=== PATIENT | female | born 1965 | race African-American/Black ===

== ENCOUNTER 2019-11-01 10:34 | Emergency (ER) | payer BC ==
[2019-11-01 10:46] VITALS: BP 158/87
--- NOTE | 2019-11-01 11:21 | UC ---
Back Pain HPI - HPI Summary HPI Summary: 54-year-old female presents with complaints of sudden onset of left mid back pain when she attempted to bend over to remove some items from her refrigerator last night. Describes pain as sharp and shooting. Worsens with movement, bending, or twisting. Used a heating pad last night with some relief in the symptoms and took acetaminophen this morning but does not feel that this has improved the pain much. Denies fever, chills, rash, chest pain, palpitations, diaphoresis, shortness of breath, abdominal pain, nausea, vomiting, dysuria, frequency, urgency, hematuria, numbness, tingling, weakness of the extremities, or loss of bowel or bladder control. - History of Current Complaint Chief Complaint: UCBackPain Stated Complaint: BACK PAIN Time Seen by Provider: 11/01/19 10:51 Hx Obtained From: Patient Hx Last Menstrual Period: 2 WEEKS AGO Pain Intensity: 9 - Allergies/Home Medications Allergies/Adverse Reactions: Allergies Allergy/AdvReac Type Severity Reaction Status Date / Time metronidazole [From Flagyl] Allergy Rash Verified 11/01/19 10:42 pyrimethamine [From Fansidar] Allergy Hives Verified 11/01/19 10:42 Sulfa (Sulfonamide Allergy ink Verified 11/01/19 10:42 Antibiotics) sulfadoxine [From Fansidar] Allergy Hives Verified 11/01/19 10:42 PMH/Surg Hx/FS Hx/Imm Hx Previously Healthy: Yes - Denies signigicant PMH - Surgical History Surgical History: Yes Surgery Procedure, Year, and Place: C-SECTIONS - Family History Known Family History: Positive: Non-Contributory - Social History Occupation: Employed Full-time Lives: With Family Alcohol Use: None Substance Use Type: None Smoking Status (MU): Never Smoked Tobacco - Immunization History Most Recent Tetanus Shot: Unknown Review of Systems All Other Systems Reviewed And Are Negative: Yes Constitutional: Negative: Fever, Chills Skin: Negative: Rash Respiratory: Negative: Shortness Of Breath, Cough Cardiovascular: Negative: Palpitations, Chest Pain Gastrointestinal: Negative: Abdominal Pain, Vomiting, Nausea Genitourinary: Negative: Dysuria, Hematuria, Frequency, Urgency Motor: Negative: Weakness Neurovascular: Negative: Decreased Sensation Musculoskeletal: Positive: Other: - See HPI Neurological: Positive: Negative Is Patient Immunocompromised?: No Physical Exam - Summary Physical Exam Summary: GENERAL APPEARANCE: Alert and cooperative obese adult female who appears to be uncomfortable unable to find a position of comfort. CARDIAC: Normal S1 and S2. No S3, S4 or murmurs. Rhythm is regular. There is no peripheral edema, cyanosis or pallor. Extremities are warm and well perfused. Capillary refill is less than 2 seconds. Peripheral pulses intact. LUNGS: Clear to auscultation without rales, rhonchi, wheezing or diminished breath sounds. ABDOMEN: Positive bowel sounds. Soft, nondistended, nontender. No guarding or rebound. No masses or hepatosplenomegally. MUSKULOSKELETAL: ROM intact to all extremities. No joint erythema or tenderness. Normal muscular development. Normal gait. BACK: No spinal deformity or midline tenderness. Mild soft tissue paraspinous tenderness to the left thoracic back. No muscle spasm noted. NEUROLOGICAL: Strength and sensation symmetric and intact throughout. SKIN: Skin normal color, texture and turgor with no lesions or eruptions. Triage Information Reviewed: Yes Vital Signs: Initial Vital Signs Temp 98 F 11/01/19 10:44 Pulse 83 11/01/19 10:44 Resp 18 11/01/19 10:44 BP 158/87 11/01/19 10:44 Pulse Ox 100 11/01/19 10:44 Vital Signs Reviewed: Yes Back Pain Course/Dx - Course Course Of Treatment: 54-year-old female presents with complaints of sudden onset of left mid back pain when she attempted to bend over to remove some items from her refrigerator last night. Describes pain as sharp and shooting. Worsens with movement, bending, or twisting. Used a heating pad last night with some relief in the symptoms and took acetaminophen this morning but does not feel that this has improved the pain much. Denies fever, chills, rash, chest pain, palpitations, diaphoresis, shortness of breath, abdominal pain, nausea, vomiting, dysuria, frequency, urgency, hematuria, numbness, tingling, weakness of the extremities, or loss of bowel or bladder control. Afebrile. Hypertensive otherwise vital signs stable. On exam patient appeared to be uncomfortable having difficulty finding a position of comfort. She had some left thoracic back soft tissue tenderness without spasm, no midline tenderness or deformities, no evidence of rash or lesions, gait was normal, and strength and sensation were intact. Discussed with the patient that her history and physical were consistent with a acute back strain and recommending conservative treatment at this time. She was given a dose of ibuprofen 600 mg PO in the clinic for pain and I provided her with a prescription for naproxen 500 mg 1 tablet every 12 hours to be taken regularly for the next 3 days then as needed. I also provided her with a prescription for cyclobenzaprine 10 mg 1 tablet every 8 hours as needed for severe pain or spasm and have recommended heat therapy. She is to return here or follow up with her primary care provider in 3 days if symptoms are not improving. Anticipatory guidance and warning symptoms requiring immediate evaluation in the emergency room were reviewed with the patient. Verbalizes understanding and agrees with plan of care. - Differential Dx/Diagnosis Differential Diagnosis/HQI/PQRI: Herniated Disc, Renal Colic, Strain Provider Diagnosis: Acute back pain Discharge ED - Sign-Out/Discharge Documenting (check all that apply): Patient Departure All imaging exams completed and their final reports reviewed: No Studies - Discharge Plan Condition: Stable Disposition: HOME Prescriptions: Cyclobenzaprine HCl 10 mg PO Q8HR PRN #21 tablet PRN Reason: Spasms - Back Naproxen [Naproxen 500 mg tab] 500 mg PO Q12HR #30 tablet Patient Education Materials: Back Pain (ED) Forms: *Work Release Referrals: Leroy Romero MD [Primary Care Provider] - 3 Days Additional Instructions: Your history and exam are consistent with an acute back strain. You're given a dose of ibuprofen 600 mg in the clinic at approximately 11:30 AM for the pain. Do not take any other anti-inflammatory medication such as aspirin, ibuprofen, naproxen for at least 8 hours. Start naproxen 500 mg 1 tablet every 12 hours with food for the next 3-5 days that you may take it every 12 hours as needed for pain. Take cyclobenzaprine 10 mg 1 tablet every 8 hours as needed for severe pain or spasm. This medication will cause drowsiness and to not take and drive or operate machinery. Apply a heating pad to the affected area for 15-20 minutes at least 4 times a day to help relax the muscles at least the pain. Return here or follow-up with your primary care provider in 3 days if symptoms are not improving. Seek immediate medical attention in the emergency room if you develop a fever greater than 100.5 F, have chest pain, shortness of breath, develop persistent or projectile vomiting, severe abdominal pain, you have difficulty walking, develop weakness, numbness, or tingling in your lower extremities, lose control of her bowel or bladder, or have any worsening of symptoms. - Billing Disposition and Condition Condition: STABLE Disposition: Home
[2019-11-01] MEDS ORDERED: Ibuprofen TAB* 600 MG PO ONE (11:30)
== END 2019-11-01 11:44 | disposition home or self-care (01) ==
LOC: UCEAST 10:34
DX: M54.89 Other dorsalgia (principal); E66.9 Obesity, unspecified; I10 Essential (primary) hypertension; Z88.1 Allergy status to other antibiotic agents; Z88.8 Allergy status to other drugs, medicaments and biological substances; Z88.2 Allergy status to sulfonamides
CPT/HCPCS: 99212; A9270-GY; G0463